=== PATIENT | male | born 1985 | race Caucasian/White ===

== ENCOUNTER 2018-03-15 16:10 | Emergency (ER) | payer BC ==
[2018-03-15] MEDS ORDERED: Ibuprofen 800 MG TAB ONE (16:58)
[2018-03-15] MEDS ORDERED: Ondansetron ODT 4 MG TAB ONE (16:58)
== END 2018-03-15 18:00 | disposition home or self-care (01) ==
LOC: MADERS 16:10
DX: B34.9 Viral infection, unspecified (principal); I10 Essential (primary) hypertension; F17.210 Nicotine dependence, cigarettes, uncomplicated; Z79.899 Other long term (current) drug therapy
CPT/HCPCS: 87804; 99283; Q0162